=== PATIENT | male | born 1970 | race Caucasian/White ===

== ENCOUNTER 2025-08-18 11:17 | Outpatient (CLI) | payer MEDICAID ==
--- NOTE | 2025-08-18 13:47 | RADIOLOGY REPORT ---
CT Chest without intravenous contrast INDICATION: LUNG CA SCREENING TECHNIQUE: Multidetector spiral CT of the chest was performed from the lung apices to the upper abdomen. Axial, coronal and sagittal multiplanar reformats were performed. Radiation Dose : 1. Chest: CTDI volume is 25 mGy. Dose-length product is 250 mGy*cm The dose indicators for CT are the volume Computed Tomography (CT) Dose Index (CTDIvol) and the Dose Length Product (DLP), and are measured in units of mGy and mGy-cm, respectively. These indicators are not patient dose, but values generated from the CT scanner acquisition factors. The report includes radiation exposure data for exposures received during this examination. Findings: Lower neck: normal Lungs: normal Heart/Vascular Structures: normal Lymph Nodes: No adenopathy Pleura: normal Musculoskeletal: normal Body wall: normal Upper abdomen: normal IMPRESSION: No suspicious pulmonary nodules. Lung Rads- 1 . Follow up in 1 year
== END 2025-08-18 23:59 | disposition home or self-care (01) ==
LOC: RAD 11:17
PROVIDERS: ATTEND Student in an Organized Health Care Education/Training Program
DX: Z12.2 Encounter for screening for malignant neoplasm of respiratory organs (principal)
CPT/HCPCS: 71271